=== PATIENT | female | born 1935 | race Caucasian/White ===

== ENCOUNTER 2017-04-06 11:03 | Inpatient (IN) | payer OTHER ==
[~2017-04-06] VITALS: Ht 152.4 cm; Wt 81.0 kg
[~2017-04-06 11:03] MED LIST: AMBIEN5 MG; APR25 PO; NOR10T PO
[2017-04-06 12:05] LABS: BASOPHIL % 0.6 % (0-2); PLATELET COUNT 209 x10^3mcL (130-400); RED CELL DISTRIBUTION WIDTH 13.1 % (11.5-14.5)
[2017-04-06 12:21] LABS: CALCIUM 8.6 mg/dL (8.5-10.1); CARBON DIOXIDE 24.1 mmol/L (21-32); CHLORIDE SERUM 107 mmol/L (98-107); CREATININE SERUM 1.2 mg/dL (0.6-1.0); GLUCOSE SERUM 96 mg/dL (74-106); SODIUM SERUM 141 mmol/L (136-145)
[2017-04-06 12:32] LABS: ALBUMIN 3.5 g/dL (3.4-5.0); ALKALINE PHOSPHATASE 66 U/L (46-116); ALT/SGPT 16 U/L (14-59); AMYLASE 52 U/L (25-115); AST/SGOT 14 U/L (15-37); BILIRUBIN TOTAL 0.98 mg/dL (0.20-1.00); HDL CHOLESTEROL 48 mg/dL (40-60); LIPASE 142 IU/L (73-393); MAGNESIUM 2.1 mg/dL (1.8-2.4); T4(THYROXINE) 5.9 ug/dL (4.7-13.3); TOTAL PROTEIN, SERUM 7.3 g/dL (6.4-8.2)
[2017-04-06 12:33] LABS: CHOLESTEROL 119 mg/dL (<200)
[2017-04-06 13:16] LABS: microscopic required? NO
[2017-04-06 13:28] LABS: UA SPECIFIC GRAVITY 1.015 (1.005-1.035); urine erythrocyte NEGATIVE (NEGATIVE)
[2017-04-06 13:33] LABS: AMPHETAMINE QUAL UR NONE DETECTED (NEG <=1000)
[2017-04-06] MEDS ORDERED: LISINOPRIL20 MG PO (13:38)
[2017-04-06] MEDS ORDERED: XANAX0.5 MG PO (13:38)
[2017-04-06] MEDS ORDERED: NOR5 PO (13:38)
[2017-04-06] MEDS ORDERED: SIMVASTATIN20 M1 PO (13:38)
[2017-04-06 14:14] LABS: PHOSPHOROUS 3.3 mg/dL (2.5-4.9)
[2017-04-06 14:24] LABS: FREE THYROXINE INDEX 2.1 ug/dL (1.4-4.5); T4(THYROXINE) 6.3 ug/dL (4.7-13.3)
[2017-04-06 14:25] LABS: T3 TOTAL 0.63 ng/mL
[2017-04-06 14:30] LABS: CHOLESTEROL/HDL RATIO 2.5
[2017-04-06 16:34] VITALS: BP 192/70
[2017-04-06 17:08] VITALS: BP 192/70
[2017-04-06 17:30] VITALS: BP 196/83
[2017-04-06 18:26] VITALS: BP 139/83
[2017-04-06 20:53] VITALS: BP 155/75
[2017-04-07 05:07] VITALS: BP 151/70
[2017-04-07 06:17] LABS: PLATELET COUNT 228 x10^3mcL (130-400); RED CELL DISTRIBUTION WIDTH 12.9 % (11.5-14.5)
[2017-04-07 06:22] LABS: CALCIUM 8.8 mg/dL (8.5-10.1); CARBON DIOXIDE 28.1 mmol/L (21-32); CHLORIDE SERUM 105 mmol/L (98-107); CREATININE SERUM 1.3 mg/dL (0.6-1.0); GLUCOSE SERUM 91 mg/dL (74-106); MAGNESIUM 2.1 mg/dL (1.8-2.4); PHOSPHOROUS 3.9 mg/dL (2.5-4.9); POTASSIUM SERUM 4.2 mmol/L (3.5-5.1); SODIUM SERUM 142 mmol/L (136-145)
[2017-04-07 08:49] VITALS: BP 172/88
[2017-04-07 09:46] LABS: ATYPICAL LYMPH 1 %; BAND NEUTROPHIL 0 % (0-10); BASOPHIL 0 % (0-2); MONOCYTE 8 % (0-7); SEGMENTED NEUTROPHILS 53 % (37-75)
[2017-04-07 09:47] LABS: rbc morphology (normal/abnorm) ABNORMAL (NORMAL)
[2017-04-07 09:48] LABS: PLATELET MORPHOLOGY PLATELETS DECREASED
[2017-04-07 12:16] VITALS: BP 153/78
[2017-04-07 15:34] VITALS: BP 141/77
[2017-04-07 17:05] VITALS: BP 130/77
[2017-04-07 21:59] VITALS: BP 120/80
[2017-04-08 06:30] VITALS: BP 116/64
[2017-04-08 06:38] LABS: CALCIUM 8.8 mg/dL (8.5-10.1); CARBON DIOXIDE 24.9 mmol/L (21-32); CHLORIDE SERUM 103 mmol/L (98-107); CREATININE SERUM 1.3 mg/dL (0.6-1.0); GLUCOSE SERUM 96 mg/dL (74-106); MAGNESIUM 2.2 mg/dL (1.8-2.4); PHOSPHOROUS 3.9 mg/dL (2.5-4.9); SODIUM SERUM 139 mmol/L (136-145)
[2017-04-08 07:29] LABS: BASOPHIL % 0.6 % (0-2); PLATELET COUNT 209 x10^3mcL (130-400)
[2017-04-08 10:00] VITALS: BP 106/61
[2017-04-08 18:17] VITALS: BP 116/65
[2017-04-08 18:21] VITALS: BP 116/65
[2017-04-08] MEDS ORDERED: COL100 PO (18:55)
[2017-04-08] MEDS ORDERED: LASIX40 MG PO (18:55)
[2017-04-08] MEDS ORDERED: MYCP TOP (18:55)
[2017-04-08] MEDS ORDERED: ATORVASTATIN CA40 M1 PO (18:55)
[2017-04-08] MEDS ORDERED: METOPROLOL TART25 M1 PO (18:55)
[2017-04-08] MEDS ORDERED: NOR10T PO (18:55)
[2017-04-08] MEDS ORDERED: NOR10 PO (18:55)
== END 2017-04-08 20:08 | disposition home health service (06) | DRG 205 ==
LOC: ED 11:03 → DU 13:14
PROVIDERS: Emergency Medicine; ADMIT Family Medicine
DX: M94.0 Chondrocostal junction syndrome [Tietze] (principal); N17.0 Acute kidney failure with tubular necrosis; I42.9 Cardiomyopathy, unspecified; I67.4 Hypertensive encephalopathy; N18.3 Chronic kidney disease, stage 3 (moderate); L40.9 Psoriasis, unspecified; G47.00 Insomnia, unspecified; E66.9 Obesity, unspecified; Z68.34 Body mass index [BMI] 34.0-34.9, adult
CPT/HCPCS: 36600; 82962; 83880; 84439; 92610; 97110-GP; 97116-GP; 97530-GP; G0480; J1940; J2270; J7030; Q9967

== ENCOUNTER 2018-03-20 16:59 | Emergency (ER) | payer OTHER ==
[~2018-03-20] VITALS: Ht 154.9 cm; Wt 72.6 kg
[~2018-03-20 16:59] MED LIST changes: +ATORVASTATIN CA40 M1 PO; +COL100 PO; +LASIX40 MG PO; +LISINOPRIL20 MG PO; +METOPROLOL TART25 M1 PO; +MYCP TOP; +NOR10 PO; +NOR5 PO; +SIMVASTATIN20 M1 PO; +XANAX0.5 MG PO
[2018-03-20 17:05] VITALS: Ht 154.9 cm; Wt 72.6 kg
[2018-03-20 17:47] LABS: BASOPHIL % 0.7 % (0-2); PLATELET COUNT 170 x10^3mcL (130-400)
[2018-03-20 17:56] LABS: CARBON DIOXIDE 26.8 mmol/L (21-32); CHLORIDE SERUM 103 mmol/L (98-107); CREATININE SERUM 1.1 mg/dL (0.6-1.0); GLUCOSE SERUM 106 mg/dL (74-106); POTASSIUM SERUM 3.6 mmol/L (3.5-5.1); SODIUM SERUM 139 mmol/L (136-145)
[2018-03-20 18:01] LABS: ALBUMIN 3.8 g/dL (3.4-5.0); ALKALINE PHOSPHATASE 69 U/L (46-116); ALT/SGPT 18 U/L (14-59); AST/SGOT 20 U/L (15-37); BILIRUBIN TOTAL 1.6 mg/dL (0.20-1.00); TOTAL PROTEIN, SERUM 7.6 g/dL (6.4-8.2)
[2018-03-20 19:50] VITALS: BP 165/91
== END 2018-03-20 19:50 | disposition home or self-care (01) ==
LOC: ED 16:59
PROVIDERS: Emergency Medicine
DX: S06.0X0A Concussion without loss of consciousness, initial encounter (principal); S01.01XA Laceration without foreign body of scalp, initial encounter; I10 Essential (primary) hypertension; Z86.73 Personal history of transient ischemic attack (TIA), and cerebral infarction without residual deficits; W05.0XXA Fall from non-moving wheelchair, initial encounter; Y93.89 Activity, other specified; Y92.89 Other specified places as the place of occurrence of the external cause; Y99.8 Other external cause status
CPT/HCPCS: 83880; J2001

== ENCOUNTER 2019-02-14 17:03 | Inpatient (IN) | payer OTHER ==
[~2019-02-14] VITALS: Ht 162.6 cm; Wt 66.5 kg
--- NOTE | 2019-02-14 17:20 | NUR ---
PT PRESENTS TO ED WITH C/O OF CHEST PAIN X1 DAY. PER DAUGHTER PT BEGAN TO C/O CHEST PAIN EARLY TODAY AND PT TOLD DAUGHTER TO BRING HER TO ED. PT STS SHE HAS SHARP, NON-RADIATING CHEST PAIN, AND POINTS TO MID CHEST AREA WHEN ASKED WHERE PAIN IS. PER DAUGHTER PT HAS HX OF 2 STROKES AND PT IS NOT ABLE TO SPEAK. PT STS SHE HAS NOT HAD CP LIKE THIS PRIOR TO TODAY. PT DENIES N/V/D, SOB, ABDOMINAL PAIN, BACK PAIN, OR SYNCOPE. PT AAOX4, RESP E/U, NO ACUTE DISTRESS NOTED AT THIS TIME, DAUGHTER AT BEDSIDE, WILL CONTINUE TO MONITOR.
[2019-02-14 17:59] LABS: BASOPHIL % 0.6 % (0-2); PLATELET COUNT 243 x10^3mcL (130-400); RED CELL DISTRIBUTION WIDTH 13.8 % (11.5-14.5)
[2019-02-14 18:06] LABS: CALCIUM 8.9 mg/dL (8.5-10.1); CARBON DIOXIDE 29.3 mmol/L (21-32); CHLORIDE SERUM 99 mmol/L (98-107); CREATININE SERUM 0.9 mg/dL (0.6-1.0); GLUCOSE SERUM 122 mg/dL (74-106); POTASSIUM SERUM 4.1 mmol/L (3.5-5.1); SODIUM SERUM 137 mmol/L (136-145)
[2019-02-14 18:18] LABS: ALKALINE PHOSPHATASE 61 U/L (46-116); ALT/SGPT 14 U/L (14-59); AST/SGOT 16 U/L (15-37); BILIRUBIN TOTAL 0.89 mg/dL (0.20-1.00); TOTAL PROTEIN, SERUM 7.3 g/dL (6.4-8.2)
[2019-02-14 18:19] LABS: ALBUMIN 3.3 g/dL (3.4-5.0); C REACTIVE PROTEIN < 0.2 mg/dL (<=0.9)
[2019-02-14 18:23] LABS: T3 TOTAL 1.08 ng/mL
[2019-02-14 18:37] LABS: CK-MB 1.4 ng/mL (0-3.6); FREE T4 1.18 ng/dL (0.76-1.46); FREE THYROXINE INDEX 2.1 ug/dL (1.4-4.5); T4(THYROXINE) 6.2 ug/dL (4.7-13.3)
[2019-02-14 18:42] LABS: ERYTHROCYTE SED RATE 14 mm/hr (0-30)
--- NOTE | 2019-02-14 18:49 | NUR ---
PT TAKEN TO RESTROOM VIA WHEELCHAIR, PT ABLE TO AMBULATE FROM WHEELCHAIR TO TOILET.
--- NOTE | 2019-02-14 19:18 | NUR ---
REPORT GIVEN TO RN BECKI TO ASSUME CARE OF PT.
--- NOTE | 2019-02-14 19:21 | NUR ---
REPORT RECEIVED FROM CARRIE WILEY TO ASSUME CARE OF PT. WAS INFORMED BY RN ABOUT PTS CONCERN DUE TO LACK OF COMMUNICATION ABOUT PAIN. PT WAS GIVEN A FACE PAIN SCALE AND EDUCATED ON USE. INFLUENZA COLLECTED AND SENT TO LAB. RT AT BEDSIDE FOR TREATMENT. DAUGHTER AT BEDSIDE FOR COMFORT. EDUCATED ABOUT HOME MEDICATION LIST NEEDED. PT DAUGHT VERBALIZED UNDERSTANDING.
[2019-02-14 19:42] LABS: microscopic required? YES; urine erythrocyte NEGATIVE (NEGATIVE)
[2019-02-14 20:17] VITALS: BP 141/74
[2019-02-14] MEDS ORDERED: XAN5 PO (20:31)
[2019-02-14] MEDS ORDERED: ZOCOR20 MG PO (20:31)
[2019-02-14] MEDS ORDERED: NOR5 PO (20:31)
[2019-02-14 20:43] VITALS: BP 141/74
--- NOTE | 2019-02-14 20:47 | NUR ---
RECEIVED PT FROM ED VIA BRENDA. ORIENTED PT TO ROOM AND SURROUNDINGS. IV NOTED TO LAC PATENT AND INTACT. TELE 25 PLACED ON PT READING SA. INSTRUCTED PT ON THE USE OF CALL LIGHT FOR ASSISTANCE. ENDORSED PT TO PRIMARY NURSE CHRISTIAN
--- NOTE | 2019-02-14 20:50 | NUR ---
RECEIVED PT FROM INEZ FLORES. PT AOX4, APHASIC. ABLE TO MAKE NEEDS KNOWN. FOLLOWS COMMANDS. TELE #25, SA, HR 61. DENIES CP/PRESSURE. NO SOB/DIFFICULTY BREATHING ON 2L NC. IV NOTED TO LAC, INTACT AND PATENT. BED IN LOWEST POSITION. CALL LIGHT WITHIN REACH. WILL CONTINUE TO MONITOR.
--- NOTE | 2019-02-14 20:50 | NUR ---
RECEIVED PT FROM INEZ FLORES. PT AOX4, APHASIC. ABLE TO MAKE NEEDS KNOWN. FOLLOWS COMMANDS. TELE #25, NSR, HR 61. DENIES CP/PRESSURE. NO SOB/DIFFICULTY BREATHING ON 2L NC. IV NOTED TO LAC, INTACT AND PATENT. BED IN LOWEST POSITION. CALL LIGHT WITHIN REACH. WILL CONTINUE TO MONITOR.
--- NOTE | 2019-02-15 01:01 | NUR ---
PT RESTING IN BED. RR EVEN AND UNLABORED. NO ACUTE DISTRESS NOTED. CALL LIGHT WITHIN REACH. BED IN LOWEST POSITION. WILL CONTINUE TO MONITOR.
[2019-02-15 05:20] VITALS: BP 111/45
[2019-02-15 06:37] LABS: BASOPHIL % 0.6 % (0-2); PLATELET COUNT 197 x10^3mcL (130-400); RED CELL DISTRIBUTION WIDTH 13.9 % (11.5-14.5)
[2019-02-15 06:46] LABS: ALKALINE PHOSPHATASE 55 U/L (46-116); ALT/SGPT 11 U/L (14-59); AST/SGOT 14 U/L (15-37); BILIRUBIN TOTAL 0.9 mg/dL (0.20-1.00); CALCIUM 8.7 mg/dL (8.5-10.1); CARBON DIOXIDE 33.2 mmol/L (21-32); CHLORIDE SERUM 102 mmol/L (98-107); GLUCOSE SERUM 84 mg/dL (74-106); POTASSIUM SERUM 4.3 mmol/L (3.5-5.1); SODIUM SERUM 139 mmol/L (136-145); TOTAL PROTEIN, SERUM 6.4 g/dL (6.4-8.2)
[2019-02-15 06:50] LABS: ALBUMIN 2.7 g/dL (3.4-5.0)
--- NOTE | 2019-02-15 07:25 | NUR ---
PATIENT IS IN AWAKE AND RESTING IN BED, BED IS TO THE LOWEST POSITION. PATIENT HAS EXPRESSIVE APHASIA AND ONLY ABLE TO NOD TO COMMANDS AND QUESTIONS. 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 PER CARDIAC STRIP PATIENT IS IN SINUS RHYTHM, AND IN AND OUT OF SINUS ARRYTHMIA. PATIENT IS ON NASAL CANNULA, 2L. PATIENT IS BREATHING ADEQUATELY AND THERE ARE NO SIGNS OF RESPIRATORY DISTRESS NOTED. ABD IS ROUND AND FLAT, THERE IS REDNESS NOTED UNDER ABD SKIN FOLD AREAS, BLANCHABLE REDNESS TO B/L HIP, AND ABRASION IS NOTED TO L HIP. PATIENT HAS LAC IV INTACT AND PATENT. PATIENT STABLE, CALL LIGHT WITHIN REACH, WILL CONTINUE TO MONITOR.
[2019-02-15 08:06] VITALS: BP 156/70
[2019-02-15 08:59] VITALS: BP 156/70
[2019-02-15 11:00] VITALS: Ht 162.6 cm; Wt 66.5 kg
--- NOTE | 2019-02-15 11:24 | NUR ---
ROUNDS MADE, PATIENT NODS HEAD TO NO, WHEN ASKED IF THEY ARE IN PAIN. NO SIGNS OR SYMPTOMS OF PAIN, PATIENT STABLE, WILL CONTINUE TO MONITOR.
--- NOTE | 2019-02-15 12:02 | NUR ---
MADE ROUNDS. PATIENT RESTING COMFORTABLY IN BED. WILL CONTINUE TO MONITOR.
[2019-02-15 12:07] VITALS: BP 143/68
--- NOTE | 2019-02-15 12:37 | NUR ---
LUNCH AT BEDSIDE, PATIENT ATTEMPTING TO EAT, COUGHS UP FOOD WHEN ATTEMPTING TO EAT. ASSISTANCE WAS PROVIDED AND ENCOURAGED PATIENT TO EAT SLOWLY. WILL CONTINUE TO MONITOR.
--- NOTE | 2019-02-15 13:55 | NUR ---
DR. AMOS AT BEDSIDE ASSESSING PATIENT AND STATES TO PATIENT, THAT PATIENT MAY BE ABLE TO GO HOME TODAY, ALSO STATES THAT NASAL CANNULA BE TAKE OFF AT THIS TIME AND TO ASSESS HOW PATIENT DOES WITHOUT NASAL CANNULA. PATIENT CURRENTLY STABLE, WITH NO SIGNS OF RESPIRATORY DISTRESS. WILL CONTINUE TO MONIOR.
[2019-02-15 15:05] VITALS: BP 143/68
--- NOTE | 2019-02-15 15:34 | NUR ---
PATIENT DISCHARGED AT THIS TIME. DAUGHTER AT BEDSIDE. PATIENT PROVIDED WITH DISCHARGE INSTRUCTIONS, AND PRESCRIPTION FOR [facility]. PATIENT INSTRUCTED TO TAKE MEDICATION PRESCRIBED, AND TO NOT STOP, EVEN IF PATIENT FEELS BETTER. TAKE THE FULL COURSE OF ANTIBIOTICS. PATIENT AND DAUGHTER, AGREED, AND UNDERSTOOD. PATIENT ALSO EDUCATED ON IMPORTANCE OF REST, AND TO RETURN TO THE HOSPITAL IF THEY FEEL THAT THEY ARE NOT GETTING BETTER. PATIENT AND DAUGHTER AGREED. PATIENT TAKEN BY WHEELCHAIR, PATIENT FREE OF DISTRESS AND NO PROBLEMS NOTED. PATIENT SAFELY ASSISTED IN DAUGHTERS CAR, NO PROBLEMS NOTED.
== END 2019-02-15 15:34 | disposition home or self-care (01) | DRG 179 ==
LOC: ED 17:03 → DU 19:34
PROVIDERS: Specialist; ADMIT Internal Medicine Pulmonary Disease
DX: J69.0 Pneumonitis due to inhalation of food and vomit (principal); I10 Essential (primary) hypertension; F32.9 Major depressive disorder, single episode, unspecified; E78.5 Hyperlipidemia, unspecified; L40.9 Psoriasis, unspecified; I25.10 Atherosclerotic heart disease of native coronary artery without angina pectoris; I69.320 Aphasia following cerebral infarction
CPT/HCPCS: 36600; 83880; 84439; 87804; J0456; J0696; J1956; J7613; J7644; Q0092